=== PATIENT | female | born 1950 | race Caucasian/White ===

== ENCOUNTER 2016-08-22 07:23 | Inpatient (IN) | payer OTHER ==
[~2016-08-22] VITALS: Ht 162.6 cm; Wt 65.8 kg
[~2016-08-22 07:23] MED LIST: ASPIR 8181 MG PO; ATENOLOL25 MG PO; BG MC; COUMADIN7.5 MG PO; DEXPF IV; DUL5 PO; FER300 PO; FOL1 PO; FOLIC ACID0.4 MG PO; GLU500 PO; HUMULIN R100 U/1 M1 SC; LAC PO; LAC30L PO; LEVAQUIN750 MG PO; LEVOTHYROXIN0.075 M2 PO; LIPI10 PO; METFORMIN ER500 M1 PO; METP PO; OYSCO 500500 M1 PO; PRI20 PO; SIMVASTATIN10 M1 PO; TEN50 PO; THERAGRAN-M1 TA4 PO; THI100 PO; TORADOL10 MG PO; TYL325 PO; VITAMIN B-12 PO; VITAMIN B12500 MCG PO; VITAMIN D32000 I2 PO
[2016-08-22 08:11] LABS: BASOPHIL % 0.1 % (0-2); PLATELET COUNT 333 x10^3mcL (130-400)
[2016-08-22 08:35] LABS: ALBUMIN 3.6 g/dL (3.4-5.0); BILIRUBIN TOTAL 1.4 mg/dL (0.20-1.00); C REACTIVE PROTEIN 1.5 mg/dL (<=0.9); CALCIUM 9.4 mg/dL (8.5-10.1); CARBON DIOXIDE 24.6 mmol/L (21-32); CREATININE SERUM 1.6 mg/dL (0.6-1.0); POTASSIUM SERUM 3.8 mmol/L (3.5-5.1); TOTAL PROTEIN, SERUM 8.5 g/dL (6.4-8.2)
[2016-08-22 09:30] LABS: ERYTHROCYTE SED RATE 94 mm/hr (0-30)
[2016-08-22 12:18] VITALS: BP 129/80; BP 144/62
[2016-08-22 12:22] LABS: T3 TOTAL 0.77 ng/mL
[2016-08-22 12:32] LABS: FREE T4 0.93 ng/dL (0.76-1.46); T4(THYROXINE) 5.7 ug/dL (4.7-13.3)
[2016-08-22 12:35] LABS: microscopic required? YES; urine erythrocyte NEGATIVE (NEGATIVE)
[2016-08-22 12:55] LABS: MAGNESIUM 1.5 mg/dL (1.8-2.4); PHOSPHOROUS 2.3 mg/dL (2.5-4.9)
[2016-08-22 12:56] LABS: CHOLESTEROL/HDL RATIO 2.3
[2016-08-22 18:03] VITALS: BP 119/53
[2016-08-22 20:40] VITALS: BP 154/70
[2016-08-23 02:10] VITALS: BP 126/72
[2016-08-23 05:33] VITALS: BP 117/69
[2016-08-23 07:29] LABS: PLATELET COUNT 267 x10^3mcL (130-400)
[2016-08-23 07:38] LABS: BASOPHIL % 0 % (0-2); RED CELL DISTRIBUTION WIDTH 15.9 % (11.5-14.5)
[2016-08-23 07:42] LABS: CALCIUM 8.6 mg/dL (8.5-10.1); CREATININE SERUM 1.4 mg/dL (0.6-1.0); MAGNESIUM 1.5 mg/dL (1.8-2.4); PHOSPHOROUS 3.4 mg/dL (2.5-4.9)
[2016-08-23 08:54] VITALS: BP 143/56
[2016-08-23 13:48] VITALS: BP 94/48
[2016-08-23 17:41] VITALS: BP 103/55
[2016-08-23 21:45] VITALS: BP 102/56
[2016-08-24 06:08] VITALS: BP 122/66
[2016-08-24 07:32] LABS: CALCIUM 7.9 mg/dL (8.5-10.1); CARBON DIOXIDE 19.7 mmol/L (21-32); MAGNESIUM 2.2 mg/dL (1.8-2.4); PHOSPHOROUS 3.6 mg/dL (2.5-4.9)
[2016-08-24 07:43] LABS: PLATELET COUNT 250 x10^3mcL (130-400)
[2016-08-24 07:48] LABS: BASOPHIL % 0 % (0-2); RED CELL DISTRIBUTION WIDTH 15.7 % (11.5-14.5)
[2016-08-24 09:33] VITALS: BP 104/55
[2016-08-24] MEDS ORDERED: GLIPIZIDE2.5 M1 PO (11:51)
[2016-08-24] MEDS ORDERED: NORCO1 TA2 PO (11:53)
[2016-08-24 13:29] VITALS: BP 104/55
== END 2016-08-24 14:35 | disposition home or self-care (01) | DRG 553 ==
LOC: ED 07:23 → DU 10:58
PROVIDERS: Emergency Medicine; ADMIT Family Medicine
PROC: 0S9D3ZZ Drainage of Left Knee Joint, Percutaneous Approach (ICD-10-PCS; principal; 2016-08-22)
PROC: 3E0U33Z Introduction of Anti-inflammatory into Joints, Percutaneous Approach (ICD-10-PCS; 2016-08-22)
DX: M17.12 Unilateral primary osteoarthritis, left knee (principal); N17.0 Acute kidney failure with tubular necrosis; E87.2 Acidosis; E87.1 Hypo-osmolality and hyponatremia; M25.462 Effusion, left knee; E11.65 Type 2 diabetes mellitus with hyperglycemia; E11.51 Type 2 diabetes mellitus with diabetic peripheral angiopathy without gangrene; E78.5 Hyperlipidemia, unspecified; I48.91 Unspecified atrial fibrillation; I12.9 Hypertensive chronic kidney disease with stage 1 through stage 4 chronic kidney disease, or unspecified chronic kidney disease; N18.3 Chronic kidney disease, stage 3 (moderate); E03.9 Hypothyroidism, unspecified; D64.9 Anemia, unspecified; Z68.24 Body mass index [BMI] 24.0-24.9, adult; Z79.84 Long term (current) use of oral hypoglycemic drugs; Z79.4 Long term (current) use of insulin
CPT/HCPCS: 82962; 83880; 84439; J1030; J1170; J1956; J2270; J2405; J3010; J3475; J3490; J7030; Q0092

== ENCOUNTER 2017-04-24 11:22 | Inpatient (IN) | payer OTHER ==
[~2017-04-24] VITALS: Ht 162.6 cm; Wt 74.8 kg
[~2017-04-24 11:22] MED LIST changes: +GLIPIZIDE2.5 M1 PO; +NORCO1 TA2 PO
[2017-04-24 11:35] VITALS: Ht 162.6 cm; Wt 74.8 kg
[2017-04-24 12:49] LABS: BASOPHIL % 0.3 % (0-2); PLATELET COUNT 301 x10^3mcL (130-400)
[2017-04-24 12:51] LABS: RED CELL DISTRIBUTION WIDTH 15.1 % (11.5-14.5)
[2017-04-24 13:09] LABS: CALCIUM 9.4 mg/dL (8.5-10.1); CARBON DIOXIDE 27.7 mmol/L (21-32); CREATININE SERUM 1.9 mg/dL (0.6-1.0); POTASSIUM SERUM 3.6 mmol/L (3.5-5.1)
[2017-04-24 13:13] LABS: BILIRUBIN TOTAL 0.6 mg/dL (0.20-1.00)
[2017-04-24 16:05] LABS: MAGNESIUM 1.1 mg/dL (1.8-2.4); PHOSPHOROUS 1.5 mg/dL (2.5-4.9)
[2017-04-24 16:07] LABS: CHOLESTEROL/HDL RATIO 1.9
[2017-04-24 16:11] VITALS: BP 114/63
[2017-04-24 16:15] LABS: FREE T4 1.2 ng/dL (0.76-1.46); FREE THYROXINE INDEX 2.8 ug/dL (1.4-4.5); T4(THYROXINE) 7.4 ug/dL (4.7-13.3)
[2017-04-24 16:22] LABS: T3 TOTAL 0.98 ng/mL
[2017-04-24 21:46] VITALS: BP 105/53
[2017-04-24 22:56] LABS: UA SPECIFIC GRAVITY >=1.030 (1.005-1.035); microscopic required? YES; urine erythrocyte 3+ (NEGATIVE)
[2017-04-24 23:54] LABS: AMPHETAMINE QUAL UR NONE DETECTED (NEG <=1000)
[2017-04-25 05:31] VITALS: BP 110/71
[2017-04-25 06:15] LABS: BASOPHIL % 0.6 % (0-2); PLATELET COUNT 282 x10^3mcL (130-400)
[2017-04-25 06:39] LABS: CALCIUM 8.6 mg/dL (8.5-10.1); CARBON DIOXIDE 26.8 mmol/L (21-32); POTASSIUM SERUM 3.4 mmol/L (3.5-5.1)
[2017-04-25 06:57] LABS: RED CELL DISTRIBUTION WIDTH 14.6 % (11.5-14.5)
[2017-04-25 10:49] VITALS: BP 104/56
[2017-04-25 14:45] LABS: IRON 41 ug/dL (50-170)
[2017-04-25 14:51] LABS: TOTAL IRON BINDING CAPACITY 194 ug/dL (250-450)
[2017-04-25 14:59] LABS: RED BLOOD CELLS 2.73 M/mm3 (4.10-5.10)
[2017-04-25 17:16] VITALS: BP 94/47
[2017-04-25 20:47] VITALS: BP 93/51
[2017-04-26 06:01] VITALS: BP 100/44
[2017-04-26 08:46] LABS: BASOPHIL % 0.3 % (0-2); PLATELET COUNT 313 x10^3mcL (130-400); RED CELL DISTRIBUTION WIDTH 14.5 % (11.5-14.5)
[2017-04-26 09:15] LABS: CALCIUM 8.2 mg/dL (8.5-10.1); CARBON DIOXIDE 22.2 mmol/L (21-32); CREATININE SERUM 1.7 mg/dL (0.6-1.0); MAGNESIUM 1.5 mg/dL (1.8-2.4); PHOSPHOROUS 3.3 mg/dL (2.5-4.9); POTASSIUM SERUM 3.8 mmol/L (3.5-5.1)
[2017-04-26 10:46] VITALS: BP 96/50
[2017-04-26 16:15] VITALS: BP 89/55
[2017-04-26 22:25] VITALS: BP 94/48
[2017-04-27 06:10] LABS: PLATELET COUNT 386 x10^3mcL (130-400)
[2017-04-27 06:29] VITALS: BP 122/52
[2017-04-27 06:39] LABS: CALCIUM 8.8 mg/dL (8.5-10.1); CARBON DIOXIDE 22.3 mmol/L (21-32); CREATININE SERUM 1.6 mg/dL (0.6-1.0); MAGNESIUM 2.1 mg/dL (1.8-2.4); PHOSPHOROUS 4.1 mg/dL (2.5-4.9); POTASSIUM SERUM 4.1 mmol/L (3.5-5.1)
[2017-04-27 06:51] LABS: BASOPHIL % 0 % (0-2); RED CELL DISTRIBUTION WIDTH 14.8 % (11.5-14.5)
[2017-04-27 10:00] VITALS: BP 146/59
[2017-04-27] MEDS ORDERED: LEV250 PO (14:41)
[2017-04-27] MEDS ORDERED: LAC PO (14:41)
[2017-04-27 16:37] VITALS: BP 134/58
[2017-04-27 17:16] VITALS: BP 134/58
== END 2017-04-27 17:58 | DRG 579 ==
LOC: ED 11:22 → MU 13:40 → DU 13:40 → MU 04-25 09:18
PROVIDERS: Emergency Medicine; Family Medicine; Surgery
PROC: 0J9M0ZZ Drainage of Left Upper Leg Subcutaneous Tissue and Fascia, Open Approach (ICD-10-PCS; principal; 2017-04-25 09:00)
DX: L02.416 Cutaneous abscess of left lower limb (principal); N17.0 Acute kidney failure with tubular necrosis; N39.0 Urinary tract infection, site not specified; E87.1 Hypo-osmolality and hyponatremia; E44.0 Moderate protein-calorie malnutrition; B96.20 Unspecified Escherichia coli [E. coli] as the cause of diseases classified elsewhere; I12.9 Hypertensive chronic kidney disease with stage 1 through stage 4 chronic kidney disease, or unspecified chronic kidney disease; E11.22 Type 2 diabetes mellitus with diabetic chronic kidney disease; N18.3 Chronic kidney disease, stage 3 (moderate); K76.0 Fatty (change of) liver, not elsewhere classified; N20.0 Calculus of kidney; M17.12 Unilateral primary osteoarthritis, left knee; M50.30 Other cervical disc degeneration, unspecified cervical region; E03.9 Hypothyroidism, unspecified; D53.9 Nutritional anemia, unspecified; I48.91 Unspecified atrial fibrillation; Z79.4 Long term (current) use of insulin; Z79.891 Long term (current) use of opiate analgesic
CPT/HCPCS: 82962; 83880; 84439; 97530-GP; G0480; J0696; J2175; J2250; J2270; J2704; J2930; J3010; J3475; J3490; J7030; J7120; Q0092

== ENCOUNTER 2017-08-07 11:40 | Inpatient (IN) | payer OTHER ==
[~2017-08-07] VITALS: Ht 162.6 cm; Wt 68.0 kg
[~2017-08-07 11:40] MED LIST changes: +LEV250 PO
[2017-08-07 11:44] VITALS: Ht 162.6 cm; Wt 68.0 kg
[2017-08-07 11:56] LABS: BASOPHIL % 0.4 % (0-2); RED CELL DISTRIBUTION WIDTH 14.1 % (11.5-14.5)
[2017-08-07] MEDS ORDERED: RANITIDINE HYD150 M2 PO (11:56)
[2017-08-07] MEDS ORDERED: FLO4 PO (11:57)
[2017-08-07 12:02] LABS: PLATELET COUNT 469 x10^3mcL (130-400)
[2017-08-07 13:29] LABS: CALCIUM 9.2 mg/dL (8.5-10.1); CARBON DIOXIDE 22.3 mmol/L (21-32); CREATININE SERUM 2.1 mg/dL (0.6-1.0); POTASSIUM SERUM 3.9 mmol/L (3.5-5.1)
[2017-08-07 16:32] LABS: MAGNESIUM 1.5 mg/dL (1.8-2.4); PHOSPHOROUS 3.7 mg/dL (2.5-4.9)
[2017-08-07 16:36] VITALS: BP 111/53
[2017-08-07 16:39] LABS: T3 TOTAL 1.19 ng/mL
[2017-08-07 16:42] LABS: FREE T4 1.18 ng/dL (0.76-1.46); FREE THYROXINE INDEX 3.1 ug/dL (1.4-4.5); T4(THYROXINE) 8.5 ug/dL (4.7-13.3)
[2017-08-07 17:59] VITALS: BP 119/66
[2017-08-07 18:23] LABS: microscopic required? NO
[2017-08-07 18:26] LABS: urine erythrocyte NEGATIVE (NEGATIVE)
[2017-08-07 22:02] VITALS: BP 98/54
[2017-08-08 04:46] LABS: CALCIUM 8.5 mg/dL (8.5-10.1); CARBON DIOXIDE 23.7 mmol/L (21-32); CREATININE SERUM 1.7 mg/dL (0.6-1.0); MAGNESIUM 2.1 mg/dL (1.8-2.4); PHOSPHOROUS 3.9 mg/dL (2.5-4.9); POTASSIUM SERUM 4.1 mmol/L (3.5-5.1)
[2017-08-08 04:48] LABS: BASOPHIL % 0.4 % (0-2); PLATELET COUNT 386 x10^3mcL (130-400)
[2017-08-08 05:47] VITALS: BP 103/65
[2017-08-08 08:08] VITALS: BP 109/51
[2017-08-08 13:40] VITALS: BP 98/46
[2017-08-08 18:27] VITALS: BP 119/59
[2017-08-08 20:54] VITALS: BP 95/50
[2017-08-09 05:29] VITALS: BP 105/48
[2017-08-09 07:16] LABS: CALCIUM 8.9 mg/dL (8.5-10.1); CARBON DIOXIDE 23.5 mmol/L (21-32); CREATININE SERUM 1.5 mg/dL (0.6-1.0); MAGNESIUM 2.2 mg/dL (1.8-2.4); PHOSPHOROUS 3.6 mg/dL (2.5-4.9); POTASSIUM SERUM 4.1 mmol/L (3.5-5.1)
[2017-08-09 07:24] LABS: BASOPHIL % 0.4 % (0-2); PLATELET COUNT 350 x10^3mcL (130-400); RED CELL DISTRIBUTION WIDTH 13.9 % (11.5-14.5)
[2017-08-09 09:30] VITALS: BP 120/54
[2017-08-09 15:15] VITALS: BP 124/51
== END 2017-08-09 16:26 | disposition home or self-care (01) | DRG 391 ==
LOC: ED 11:40 → DU 14:43
PROVIDERS: Emergency Medicine; Family Medicine; Student in an Organized Health Care Education/Training Program
DX: K21.9 Gastro-esophageal reflux disease without esophagitis (principal); N17.0 Acute kidney failure with tubular necrosis; I48.0 Paroxysmal atrial fibrillation; E83.42 Hypomagnesemia; E03.9 Hypothyroidism, unspecified; I10 Essential (primary) hypertension; M19.90 Unspecified osteoarthritis, unspecified site; E78.5 Hyperlipidemia, unspecified; Z68.25 Body mass index [BMI] 25.0-25.9, adult
CPT/HCPCS: 82962; 83880; 84439; 97110-GP; C9113; J3475; J7030; Q0092

== ENCOUNTER 2018-01-04 13:51 | Inpatient (IN) | payer OTHER ==
[~2018-01-04] VITALS: Ht 162.6 cm; Wt 59.0 kg
[~2018-01-04 13:51] MED LIST changes: +FLO4 PO; +RANITIDINE HYD150 M2 PO
[2018-01-04 13:57] VITALS: Ht 162.6 cm; Wt 59.0 kg
[2018-01-04 14:54] LABS: BASOPHIL % 0.4 % (0-2); PLATELET COUNT 333 x10^3mcL (130-400)
[2018-01-04 15:01] LABS: CARBON DIOXIDE 23.9 mmol/L (21-32); CREATININE SERUM 2.3 mg/dL (0.6-1.0)
[2018-01-04 15:14] LABS: ALBUMIN 3.5 g/dL (3.4-5.0); BILIRUBIN TOTAL 0.64 mg/dL (0.20-1.00); T4(THYROXINE) 8.6 ug/dL (4.7-13.3)
[2018-01-04 15:17] LABS: TOTAL PROTEIN, SERUM 8.3 g/dL (6.4-8.2)
[2018-01-04] MEDS ORDERED: CALCIUM500 M1 (15:25)
[2018-01-04 16:07] LABS: MAGNESIUM 1.7 mg/dL (1.8-2.4); PHOSPHOROUS 2.6 mg/dL (2.5-4.9)
[2018-01-04 16:09] LABS: T3 TOTAL 0.82 ng/mL
[2018-01-04 16:14] LABS: FREE T4 1.46 ng/dL (0.76-1.46); FREE THYROXINE INDEX 3.3 ug/dL (1.4-4.5); T4(THYROXINE) 8.6 ug/dL (4.7-13.3)
[2018-01-04 16:42] VITALS: BP 109/71
[2018-01-04 17:49] VITALS: BP 109/71
[2018-01-04 18:35] LABS: UA SPECIFIC GRAVITY <=1.005 (1.005-1.035); microscopic required? YES; urine erythrocyte NEGATIVE (NEGATIVE)
[2018-01-04 18:42] LABS: AMPHETAMINE QUAL UR NONE DETECTED (See below)
[2018-01-04 20:52] VITALS: BP 133/81
[2018-01-05 05:09] VITALS: BP 101/67
[2018-01-05 06:28] LABS: BASOPHIL % 0.5 % (0-2); PLATELET COUNT 290 x10^3mcL (130-400); RED CELL DISTRIBUTION WIDTH 14.1 % (11.5-14.5)
[2018-01-05 06:43] LABS: CALCIUM 8.7 mg/dL (8.5-10.1); CARBON DIOXIDE 22.2 mmol/L (21-32); CREATININE SERUM 1.7 mg/dL (0.6-1.0); MAGNESIUM 1.8 mg/dL (1.8-2.4); PHOSPHOROUS 3.9 mg/dL (2.5-4.9); POTASSIUM SERUM 4.1 mmol/L (3.5-5.1)
[2018-01-05 09:40] VITALS: BP 101/55
[2018-01-05 12:49] VITALS: BP 106/73
[2018-01-05 17:24] VITALS: BP 124/73
[2018-01-05 21:26] VITALS: BP 125/51
[2018-01-06 05:41] VITALS: BP 137/82
[2018-01-06 06:26] LABS: BASOPHIL % 0.4 % (0-2); PLATELET COUNT 243 x10^3mcL (130-400)
[2018-01-06 06:38] LABS: RED CELL DISTRIBUTION WIDTH 14.6 % (11.5-14.5)
[2018-01-06 07:14] LABS: CALCIUM 9.2 mg/dL (8.5-10.1); CREATININE SERUM 1.6 mg/dL (0.6-1.0); MAGNESIUM 1.8 mg/dL (1.8-2.4); PHOSPHOROUS 4.1 mg/dL (2.5-4.9); POTASSIUM SERUM 4.5 mmol/L (3.5-5.1)
[2018-01-06 14:34] VITALS: BP 99/60
[2018-01-06 16:51] VITALS: BP 104/64
[2018-01-06 20:15] VITALS: BP 127/61
[2018-01-07 05:45] VITALS: BP 117/64
[2018-01-07 06:21] LABS: BASOPHIL % 0.6 % (0-2); PLATELET COUNT 237 x10^3mcL (130-400); RED CELL DISTRIBUTION WIDTH 14.3 % (11.5-14.5)
[2018-01-07 07:04] LABS: CALCIUM 8.6 mg/dL (8.5-10.1); CARBON DIOXIDE 23.6 mmol/L (21-32); CREATININE SERUM 1.6 mg/dL (0.6-1.0); MAGNESIUM 1.7 mg/dL (1.8-2.4); POTASSIUM SERUM 4.6 mmol/L (3.5-5.1)
[2018-01-07 09:00] VITALS: BP 111/69; BP 148/71
[2018-01-07] MEDS ORDERED: DEXPF IV (12:45)
[2018-01-07] MEDS ORDERED: HUMULIN R100 U/1 M1 SC (12:46)
[2018-01-07] MEDS ORDERED: TYL325 PO (12:46)
[2018-01-07] MEDS ORDERED: BG FS (12:46)
[2018-01-07] MEDS ORDERED: COUMADIN2 MG PO (12:48)
[2018-01-07 15:27] VITALS: BP 107/69
== END 2018-01-07 17:30 | DRG 73 ==
LOC: ED 13:51 → DU 15:22
PROVIDERS: Emergency Medicine; Family Medicine; Internal Medicine
DX: G90.8 Other disorders of autonomic nervous system (principal); N17.0 Acute kidney failure with tubular necrosis; J96.00 Acute respiratory failure, unspecified whether with hypoxia or hypercapnia; E87.1 Hypo-osmolality and hyponatremia; I50.42 Chronic combined systolic (congestive) and diastolic (congestive) heart failure; D68.59 Other primary thrombophilia; I48.2 Chronic atrial fibrillation; N18.3 Chronic kidney disease, stage 3 (moderate); I12.9 Hypertensive chronic kidney disease with stage 1 through stage 4 chronic kidney disease, or unspecified chronic kidney disease; E11.22 Type 2 diabetes mellitus with diabetic chronic kidney disease; E78.5 Hyperlipidemia, unspecified; D64.9 Anemia, unspecified; N39.3 Stress incontinence (female) (male); E03.9 Hypothyroidism, unspecified; E83.42 Hypomagnesemia; Z68.26 Body mass index [BMI] 26.0-26.9, adult; Z79.84 Long term (current) use of oral hypoglycemic drugs
CPT/HCPCS: 82962; 83880; 84439; 85378; 97116-GP; 97530-GP; A9500; A9540; J2060; J2785; J7030; J7620; J8597; Q0092

== ENCOUNTER 2018-03-20 00:43 | Emergency (ER) | payer OTHER ==
[~2018-03-20] VITALS: Ht 157.5 cm; Wt 72.1 kg
[~2018-03-20 00:43] MED LIST changes: +BG FS; +CALCIUM500 M1; +COUMADIN2 MG PO
[2018-03-20 07:30] VITALS: BP 124/68
== END 2018-03-20 07:30 | disposition home or self-care (01) ==
LOC: ED 00:43
DX: M17.11 Unilateral primary osteoarthritis, right knee (principal); E03.9 Hypothyroidism, unspecified; K21.9 Gastro-esophageal reflux disease without esophagitis; I48.2 Chronic atrial fibrillation; Z88.2 Allergy status to sulfonamides; Z88.0 Allergy status to penicillin
CPT/HCPCS: J1885; J2405; J3010

== ENCOUNTER 2019-01-04 08:46 | Emergency (ER) | payer OTHER ==
[~2019-01-04] VITALS: Ht 157.5 cm; Wt 60.3 kg
[2019-01-04 09:00] VITALS: Ht 157.5 cm; Wt 60.3 kg
[2019-01-04 11:57] VITALS: BP 104/70
== END 2019-01-04 11:57 | disposition home or self-care (01) ==
LOC: ED 08:46
DX: M75.102 Unspecified rotator cuff tear or rupture of left shoulder, not specified as traumatic (principal); I10 Essential (primary) hypertension; E11.9 Type 2 diabetes mellitus without complications; E03.9 Hypothyroidism, unspecified; Z90.49 Acquired absence of other specified parts of digestive tract; Z98.890 Other specified postprocedural states; Z88.0 Allergy status to penicillin; Z88.5 Allergy status to narcotic agent
CPT/HCPCS: J1885; Q0092

== ENCOUNTER 2019-10-31 03:11 | Emergency (ER) | payer OTHER ==
[~2019-10-31] VITALS: Ht 157.5 cm; Wt 63.5 kg
[~2019-10-31 03:11] MED LIST changes: +APAP/HYDROCODON1 T13 PO; +ASPIRIN FOR CHI81 M1 PO; +ELIQUIS2.5 MG PO; +LANOXIN0.125 MG PO
[2019-10-31 03:23] VITALS: Ht 157.5 cm; Wt 63.5 kg
[2019-10-31 04:13] LABS: BASOPHIL % 0.8 % (0-2); PLATELET COUNT 380 x10^3mcL (130-400); RED CELL DISTRIBUTION WIDTH 13.5 % (11.5-14.5)
[2019-10-31 04:19] LABS: CALCIUM 8.5 mg/dL (8.5-10.1); CHLORIDE SERUM 104 mmol/L (98-107); CREATININE SERUM 1.2 mg/dL (0.6-1.0); GLUCOSE SERUM 69 mg/dL (74-106); POTASSIUM SERUM 4.3 mmol/L (3.5-5.1); SODIUM SERUM 141 mmol/L (136-145)
[2019-10-31 04:25] LABS: ALBUMIN 3.5 g/dL (3.4-5.0); ALKALINE PHOSPHATASE 94 U/L (46-116); ALT/SGPT 24 U/L (14-59); AST/SGOT 34 U/L (15-37); BILIRUBIN TOTAL 0.3 mg/dL (0.20-1.00); TOTAL PROTEIN, SERUM 7.6 g/dL (6.4-8.2)
[2019-10-31 06:57] VITALS: BP 163/105
== END 2019-10-31 06:57 | disposition home or self-care (01) ==
LOC: ED 03:11
PROVIDERS: Emergency Medicine
DX: E11.649 Type 2 diabetes mellitus with hypoglycemia without coma (principal); I10 Essential (primary) hypertension; I48.91 Unspecified atrial fibrillation; F10.10 Alcohol abuse, uncomplicated; E78.5 Hyperlipidemia, unspecified; E03.9 Hypothyroidism, unspecified; Z98.890 Other specified postprocedural states; Z88.0 Allergy status to penicillin; Z88.2 Allergy status to sulfonamides; Z88.5 Allergy status to narcotic agent; Z90.89 Acquired absence of other organs
CPT/HCPCS: 82962; J3490; J7030

== ENCOUNTER 2019-12-01 13:36 | Emergency (ER) | payer OTHER ==
[~2019-12-01] VITALS: Ht 157.5 cm; Wt 63.5 kg
[2019-12-01 13:42] VITALS: Ht 157.5 cm; Wt 63.5 kg
[2019-12-01 15:16] LABS: BASOPHIL % 0.4 % (0-2); PLATELET COUNT 323 x10^3mcL (130-400)
[2019-12-01 15:22] LABS: CALCIUM 9.5 mg/dL (8.5-10.1); CARBON DIOXIDE 25.9 mmol/L (21-32); CHLORIDE SERUM 103 mmol/L (98-107); CREATININE SERUM 1.3 mg/dL (0.6-1.0); GLUCOSE SERUM 115 mg/dL (74-106); POTASSIUM SERUM 5.1 mmol/L (3.5-5.1); SODIUM SERUM 138 mmol/L (136-145)
[2019-12-01 15:27] LABS: ALBUMIN 3.5 g/dL (3.4-5.0); ALKALINE PHOSPHATASE 109 U/L (46-116); ALT/SGPT 19 U/L (14-59); AST/SGOT 24 U/L (15-37); BILIRUBIN TOTAL 0.49 mg/dL (0.20-1.00); TOTAL PROTEIN, SERUM 7.5 g/dL (6.4-8.2)
[2019-12-01 16:51] VITALS: BP 135/68
== END 2019-12-01 16:37 | disposition home or self-care (01) ==
LOC: ED 13:36
PROVIDERS: Emergency Medicine
DX: I48.91 Unspecified atrial fibrillation (principal); I10 Essential (primary) hypertension; E11.9 Type 2 diabetes mellitus without complications; E78.5 Hyperlipidemia, unspecified; Z90.89 Acquired absence of other organs; Z88.0 Allergy status to penicillin; Z88.2 Allergy status to sulfonamides; Z88.5 Allergy status to narcotic agent
CPT/HCPCS: 83880; Q0092